=== PATIENT | female | born 1955 | race Caucasian/White ===

== ENCOUNTER 2017-07-08 04:12 | Emergency (ER) | payer MEDICAID, OTHER ==
[~2017-07-08] VITALS: Ht 165.1 cm; Wt 108.0 kg
[~2017-07-08 04:12] MED LIST: ENAL5TAB PO; GLIP-95 PO; METF1000 PO
[2017-07-08 04:16] VITALS: Ht 165.1 cm; Wt 108.0 kg
[2017-07-08] MEDS ORDERED: ASPIRIN 325 MG TAB PO STA (04:46)
[2017-07-08 05:22] LABS: BASOPHIL # 0.1 10^3/ul (0.0-0.1); BASOPHILS % 0.8 % (0.0-2.0); EOSINOPHILS # 0.2 10^3/ul (0.0-0.5); EOSINOPHILS % 2.5 % (0.0-7.0); HEMATOCRIT 39.9 % (37.0-47.0); HEMOGLOBIN 13.7 g/dl (12.0-16.0); LYMPHOCYTES # 2.6 10^3/ul (0.8-2.9); LYMPHOCYTES % 30.9 % (15.0-51.0); MEAN CORPUSCULAR HEMOGLOBIN 31.1 pg (29.0-33.0); MEAN CORPUSCULAR HGB CONC 34.3 g/dl (32.0-37.0); MEAN CORPUSCULAR VOLUME 90.7 fl (82.0-101.0); MEAN PLATELET VOLUME 11.3 fl (7.4-10.4); MONOCYTE # 0.7 10^3/ul (0.3-0.9); MONOCYTES % 8.1 % (0.0-11.0); NEUTROPHIL # 4.9 10^3/ul (1.6-7.5); NEUTROPHILS % 57.5 % (39.0-77.0); PLATELET COUNT 202 10^3/UL (140-415); WHITE BLOOD COUNT 8.5 10^3/ul (4.8-10.8)
[2017-07-08 06:02] LABS: ANION GAP 14 (8-16)
[2017-07-08 06:10] LABS: BLOOD UREA NITROGEN 14 mg/dl (7-20); CALCIUM 9.1 mg/dl (8.4-10.2); CARBON DIOXIDE 29 mmol/L (21-31); CHLORIDE 103 mmol/L (97-110); CREATININE 0.69 mg/dl (0.44-1.00); GLUCOSE 126 mg/dl (70-220); POTASSIUM 4.1 mmol/L (3.5-5.1); SODIUM 142 mmol/L (135-144)
[2017-07-08 06:22] LABS: TROPONIN-I < 0.012 ng/ml (0.00-0.12)
--- NOTE | 2017-07-08 06:44 | RADRPT ---
PROCEDURE: CHEST - 1 VIEW CLINICAL INDICATION: 61-year-old female with chest pain. TECHNIQUE: A single frontal AP semi-erect portable view of the chest was performed. The images we re reviewed on a PACS workstation. COMPARISON: None. FINDINGS: The cardiomediastinal silhouette is within normal limits. There is no evidence for an infiltrate. There is no evidence for congestive heart failure. There is no evidence for pneumothorax. The osseou s structures are intact. IMPRESSION: No evidence for active cardiopulmonary disease. .Nikolas Roth MD, MD Date Time Electronically viewed and signed by .Nikolas Roth MD, MD on 07/08/2017 06:44 .M/
[2017-07-08 07:16] LABS: D-DIMER 1376.75 ng/ml (<460)
[2017-07-08 07:29] VITALS: BP 129/110; PULSE 67; RESP 18
--- NOTE | 2017-07-08 07:40 | ERA ---
ER Documentation Chief Complaint Date/Time DATE: 07/08/17 TIME: 07:37 Chief Complaint sudden SOB 1 hour RADIATION THERAPIST. 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 -CP at this time. HPI 61-year-old female with a history of diabetes and hypertension presenting to the ER with complaints of shortness of breath that started suddenly 1 hour prior to arrival. She was asleep when this happened. She denies any associated chest pain, diaphoresis. She did have associated dizziness and felt like she was about to "pass out". No fever, chills, cough, recent surgeries, recent immobilization, or recent travel. No history of blood clots. She was at [facility] about 1 week ago sent there from her primary care doctor's office for chest pain and an abnormal EKG. She had a cardiac ultrasound done at that time but she does not know what the results were. She was told to follow-up with a numerical control drill press operator, but she needs to get a referral from her primary care doctor. Patient was given aspirin prior to me seeing her. Currently she denies any shortness of breath or chest pain. ROS All systems reviewed and are negative except as per history of present illness. Medications Home Meds Reported Medications Enalapril Maleate* (Enalapril Maleate*) 5 Mg Tablet, 5 MG PO DAILY, TAB 06/18/15 Glipizide* (Glipizide*) 10 Mg Tablet, 20 MG PO BID, TAB 03/16/15 Metformin Hcl* (Metformin Hcl*) 1,000 Mg Tablet, 1000 MG PO BID, TAB 03/16/15 Allergies Allergies: Coded Allergies: Penicillins (Verified Allergy, Unknown, 07/08/17) PMhx/Soc History of Surgery: Yes (Appendectomy 2001) Anesthesia Reaction: No Hx Neurological Disorder: No Hx Respiratory Disorders: No Hx Cardiac Disorders: Yes (HTN) Hx Psychiatric Problems: No Hx Miscellaneous Medical Probl: Yes (DM) Hx Alcohol Use: No Hx Substance Use: No Hx Tobacco Use: No FmHx Family History: No coronary disease Physical Exam Vitals Vital Signs Date Time Temp Pulse Resp B/P Pulse Ox O2 Delivery O2 Flow Rate FiO2 07/08/17 07:29 67 18 129/110 97 Room Air 07/08/17 06:12 60 18 129/63 98 Room Air 07/08/17 04:16 97.0 66 18 148/82 99 Physical Exam Const: Well-appearing, nontoxic, no apparent distress, speaking in full sentences Head: Atraumatic Eyes: Normal Conjunctiva ENT: Normal External Ears, Nose and Mouth. Neck: Full range of motion..~ No meningismus. Resp: Clear to auscultation bilaterally Cardio: Regular rate and rhythm, no murmurs. 2+ radial pulses bilaterally. 2+ DP and PT pulses bilaterally. Abd: Soft, non tender, non distended. Normal bowel sounds Skin: No petechiae or rashes Back: No midline or flank tenderness Ext: No cyanosis, or edema. No calf tenderness. Negative Homans sign Neur: Awake and alert Psych: Normal Mood and Affect Result Diagram: 07/08/17 0510 07/08/17 0510 Results 24 hrs Laboratory Tests Test 07/08/17 05:10 07/08/17 08:47 White Blood Count 8.510^3/ul Red Blood Count 4.4010^6/ul Hemoglobin 13.7g/dl Hematocrit 39.9% Mean Corpuscular Volume 90.7fl Mean Corpuscular Hemoglobin 31.1pg Mean Corpuscular Hemoglobin Concent 34.3g/dl Red Cell Distribution Width 13.0% Platelet Count 73665^3/UL Mean Platelet Volume 11.3fl Neutrophils % 57.5% Lymphocytes % 30.9% Monocytes % 8.1% Eosinophils % 2.5% Basophils % 0.8% Nucleated Red Blood Cells % 0.0/100WBC Neutrophils # 4.910^3/ul Lymphocytes # 2.610^3/ul Monocytes # 0.710^3/ul Eosinophils # 0.210^3/ul Basophils # 0.110^3/ul Nucleated Red Blood Cells # 0.010^3/ul D-Dimer 1376.75ng/ml D-Dimer Comment Sodium Level 142mmol/L Potassium Level 4.1mmol/L Chloride Level 103mmol/L Carbon Dioxide Level 29mmol/L Anion Gap 14 Blood Urea Nitrogen 14mg/dl Creatinine 0.69mg/dl Glucose Level 126mg/dl Calcium Level 9.1mg/dl Troponin I < 0.012ng/ml < 0.012ng/ml Current Medications Medications (Trade) Dose Ordered Sig/Vini Route PRN Reason Start Time Stop Time Status Last Admin Dose Admin Aspirin (Aspirin) 325 mg ONCE STAT PO 07/08/17 04:46 07/08/17 04:48 DC 07/08/17 05:22 IV Flush 10 ml 10 ml STK-MED ONCE .ROUTE 07/08/17 08:04 07/08/17 08:05 DC 07/08/17 08:23 Sodium Chloride (NS) 100 ml @ ud STK-MED ONCE .ROUTE 07/08/17 08:04 07/08/17 08:05 DC 07/08/17 08:23 Iodixanol (Visipaque Locm) 100 ml STK-MED ONCE .ROUTE 07/08/17 08:04 07/08/17 08:05 DC 07/08/17 08:23 Procedures/MDM EMERGENT LABS AND DIAGNOSTIC STUDIES: Lab Results above were reviewed and interpreted by me. CBC unremarkable BMP unremarkable Troponin within normal limits D-dimer elevated 12-lead EKG was interpreted by Deya Love MD: Normal Sinus Rhythm with ventricular rate of 62 beats per minute Normal axis Normal intervals Nonspecific ST abnormalities No acute ST or T wave changes suggestive of acute ischemia or STEMI. Radiology Results as interpreted by Radiology below were reviewed by Jessica Love MD: Chest x-ray shows no acute abnormalities CT angio chest: No evidence of pulmonary embolism or dissection, no other acute abnormalities Initial Nursing notes reviewed. Previous Medical Records requested via the Electronic Health Record. EMERGENCY DEPARTMENT COURSE / MEDICAL DECISION MAKING: The patient presents with chest pain. Vitals are stable. I considered pulmonary embolism, aortic dissection, pneumothorax among other diagnoses. Evaluation for acute coronary syndrome was performed. The HEART score was utilized for risk stratification and found to be 2. Repeat EKG and troponin @ 3 hours were unchanged. Based on this evaluation the patient's risk of major adverse cardiac events is <1%. CTPA did not show evidence of pulmonary embolism or aortic dissection. Shared decision making occurred with patient and the decision has been made to discharge the patient for outpatient evaluation and functional study within 72 hours. Patient instructed to arrange follow up with PCP in the next 2 days and return to the ED for any new or worsening symptoms. Patient's blood pressure was elevated (>120/80) but appears stable without evidence of hypertensive emergency or urgency. The patient was counseled about the risks of hypertension and urged to pursue outpatient monitoring and therapy within a week with their primary care physician. Departure Diagnosis: Primary Impression: Shortness of breath Condition: Stable ANGELA LOVE MD Jul 08, 2017 07:40
[2017-07-08] MEDS ORDERED: IODIXANOL LOCM 100 ML BTL ONE (08:04)
[2017-07-08] MEDS ORDERED: SOD CHLORIDE 0.9% 100 ML ONE (08:04)
--- NOTE | 2017-07-08 08:29 | RADRPT ---
PROCEDURE: CTA Chest and pulmonary angiogram. CLINICAL INDICATION: Chest pain and shortness of breath.. TECHNIQUE: CT scan of the chest and CT pulmonary angiogram was performed on the multi-slice volume tric CT scanner. High-resolution thin slice coronal and sagittal imaging was obtained from the axia l source images following the uncomplicated intravenous administration of 90 cc of Visipaque 320 con trast. The images were reviewed on a PACS workstation. 3-D post-processing performed. DLP = 713.2 mGy-cm. CTDIVol = 56.3, 19.9 mGy. One or more of the following dose reduction techniques were used: Automated exposure control. Adjustment of the mA and/or kV according to patient size. Use of iterative reconstruction technique. COMPARISON: No prior studies are available for comparison. FINDINGS: CT chest: The lungs are clear. Mediastinum and hilum show no significant mass or adenopathy. The vascular st ructures of the mediastinum are normal in course and caliber. The heart size is normal without carlota cardial thickening or effusion. The axillary, subpectoral, and supraclavicular regions are unremark able. There is a 2.2 cm cyst with wall calcification in the spleen. The gallbladder has been removed . The adrenal glands are symmetrically normal. Chest wall is unremarkable. Degenerative enthesopat hy of the spine is seen. . CT pulmonary angiogram: The main pulmonary artery, bilateral pulmonary arterial trunks, lobar and segmental branches of the pulmonary arteries show no evidence of filling defect and/or pulmonary emboli. The aorta is normal in caliber without aneurysm or dissection. IMPRESSION: 1. No evidence of pulmonary emboli, aortic aneurysm or dissection.. 2. Normal CT scan of the chest. 3. Status post cholecystectomy. 4. Splenic cyst. 5. Degenerative enthesopathy of the spine. RPTAT: GG .Yohannes Dumont MD, MD Date Time Electronically viewed and signed by .Yohannes Dumont MD, on 07/08/2017 08:29 .L/
== END 2017-07-08 10:44 | disposition home or self-care (01) ==
LOC: FTE 04:12
DX: R06.02 Shortness of breath (principal); I10 Essential (primary) hypertension; E11.9 Type 2 diabetes mellitus without complications; Z79.84 Long term (current) use of oral hypoglycemic drugs
CPT/HCPCS: 36415; 71010; 71275; 80048; 84484; 85025; 85378; 93005; Q9967; Z7502; Z7610